=== PATIENT | male | born 2000 | race Caucasian/White ===

== ENCOUNTER 2024-01-16 13:53 | Emergency (ER) | payer OTHER, SELFPAY ==
[2024-01-16] VITALS (9 sets, daily range): BP systolic 117–138; BP diastolic 70–88; PULSE 60–87; RESP 12–20; TEMP 36.7; O2SAT 96–97; BMI 30.1
--- OUTSIDE RECORDS SUMMARY | 2024-01-16 13:57 | XMS_ITS | Continuity of Care Document ---
Author Name Unknown Organization [facility] Address [address] [address] [place] [address] Phone Care Team Providers Care Radio Time Sales Supervisor Name Role Phone Unavailable Unavailable Unavailable Allergies, Adverse Reactions, Alerts Substance Reaction Status Criticality No Known Allergies Active No Inform ation Medications Medication Instructions Dosage Effective Dates (start - stop) Status Comments Humalog 100 unit/mL subcutaneous solution inject by subcutaneous route per prescriber's instructions. Insulin dosing requires individualization. 0.00 - Active multivitamin tablet take 1 tablet by ora l route every day 1 tablet - Active Procedures Procedure Date Offic/outpt E&m [facility] Routine Serum Collection Gg; Iga, Igd, Igg, Igm, Ea Advance Directives Directive Yes / No Effective Date File Name No Information Encounters Encounter Description Practice Location Reason(s) For Visit Diagnoses Date Provider Providers Copied on Encounter [facility], [address] [address], [place], [id number], [place] tel:[phone] [facility] No Information 6 No Information Kai Hill DO. tel:[phone] Offic/outpt E&m [facility], [address] [address], [place], [id number], [place] tel:[phone] Pediatric [facility] GI Symptoms or Concerns (chief complaint) Type 1 diabetes mellitus without complicationAbno rmal laboratory test 5201 6 No Information Referring Provider: Referral Self, USE FOR SELF REFERRALS. Family History Family Member Type Diagnosis Age At Onset Sister Problem (finding) Alive and well Mother Problem (finding) Alive and well Father Problem (finding) Alive and well Brother Problem (finding) Alive and well Payers Payer name Insurance type Covered alliance party ID Authoriza tihebert(s) [employer] CI [id number] Social History Type Description Quantity Date Captured Comments Alcohol Use Details Unknown Caffeine Use Details Unknown Tobacco Use Status No Information Smoking Status No Information Sex Male Chief Complaint And Reason For Visit No Information Reason For Referral Reason For Referral No Information History Of Present Illness Encounter Date Complaint History Of Prese nt Illness GI Symptoms or Concerns Vazquez Funez is a 15-year-old boy seen in pediatric gastroenterology clinic accompanied by his mother and father in consultation for a tissue transglutaminase, which was found to be 6 with a reference range of 0 to 3. 0 to 3 is considered negative, 4 to 10 weakly positive, and 11 or greater positive. Vazquez has type 1 diabetes and because of feelings of fatigue, he had a tissue transglutaminase done with the above result noted. There was no total immunoglobulin A done at that time. He has diarrhea approximately once per month with one to two loose stools. He has never had a problem with constipation, but tends to have [place] 2 or 3 stools. When he does pass a very large stool, which is rare, he does experience some pain, but does not regard this as a problem. He has had no blood, mucus, or melena in his stool. He has no history of vomiting.FAMILY HISTORYThe family history is negative for celiac disease and type 1 diabetes.REVIEW OF SYSTEMSVazquez has no problems with Functional Status Date Functional Assessmen t No Information Instructions Date Instruction Additional Infor sree Today, we will obtai n a full celiac screen within a total immunoglobulin A, the tissue transglutaminase IgA deamidated gliadins IgA and IgG. We will then determine if we want to proceed to upper GI endoscopy with biopsies for the definitive assessment of celiac disease. Vazquez and his parents agree with this plan. Related to Type 1 diabetes mellitus without complication Assessments Type Assessment Date No Information Patient Care Teams Name Effective Dates (start - stop) Status Members No Information
--- OUTSIDE RECORDS SUMMARY | 2024-01-16 13:57 | XMS_ITS | Clinical Summary ---
Author Name Unknown Organization [facility] Address [place], [place] [address] Care Team Providers Care Banquet Attendant Name Role Phone Pcp, No Primary Care Provider Unavailabl e Allergies No known active allergies Medications Medication Sig Dispensed Refills Start Date End Date Status ibuprofen (ADVIL; MOTRIN) 200 mg cap Take 200 mg by mouth every 6 hours. Active ondansetron (ZOFRAN ODT) 4 mg disintegrating tabletIndications:Nause a and vomiting, unspecified vomiting type Place 1 Tablet (4 mg) on the tongue every 6 hours if needed for Nausea/Vomiting . 10 Tablet 07/11/2022 Active Active Problems Problem Noted Date Diagnosed Date Type 1 diabetes 07/11/2022 Social History Tobacco Use Types Packs/Day Years Used Date Smoking Tobacco: Never Smokeless Tobacco: Never Alcohol Use Standard Drinks/Week Comments Yes 0 (1 standard drink = 0.6 oz pur e alcohol) Sex and Gender Information Value Date Recorded Sex Assigned at Not on file Gender Identity Not on file Sexual Orientation Not on file Obstetrics History Last Filed Vital Signs Vital Sign Reading Time Taken Comments Blood Pressure 137/71 07/11/2022 9:00 AM CDT Pulse 114 07/11/2022 9:00 AM CDT Temperature 37.5 ??C (99.5 ??F) 07/11/2022 8:23 AM CD T Respiratory Rate 18 07/11/2022 8:23 AM CDT Oxygen Saturation 96% 07/11/2022 9:00 AM CDT Inhaled Oxygen Concentration - - Weight 90.7 kg (200 lb) 07/11/2022 8:23 AM CDT Height 180.3 cm (5' 11) 07/11/2022 8:23 AM CDT Body Mass Index 27.89 07/11/2022 8:23 AM CDT Plan of Treatment Not on file Care Teams Banquet Attendant Relationship Specialty Start Date End Date Pcp, No . PCP - General 07/11/22
[2024-01-16 14:08] LABS: Glucose, Point-of-Care* 440 mg/dl (60-115)
[2024-01-16] MEDS: 0.9 % SODIUM CHLORIDE 1000 ml 1,000 ML IV (14:28)
--- NOTE | 2024-01-16 14:31 | ED.GENADULT ---
HPI - General Adult General Chief complaint: Diabetic Related Problem Stated complaint: Blood sugar over 400 for 7 hrs Time Seen by Provider: 01/16/24 13:55 Source: patient Mode of arrival: ambulatory Limitations: no limitations History of Present Illness HPI narrative: 23-year-old male coming in today complaining of elevated blood sugars. Patient is has a history of type 1 diabetes and has an insulin pump in place. He last changed his pump 2 days ago. He states that for the last 7 hours his blood sugars have been over 400 he can not get them to come down. He feels what he describes as sticky - like he is slower to function. He also states that he has vomited a couple of times today. Patient does admit to drinking alcohol daily. Did have alcohol last night. No fevers, no abdominal pain. Related Data Home Medications Medication Instructions Recorded Confirmed albuterol sulfate 90 mcg/actuation 1 - 2 puff inhalation Q4-6H PRN 08/31/22 01/16/24 aerosol inhaler glucagon 3 mg/actuation nasal spray intranasal PRN 08/31/22 08/31/22 spray (Baqsimi) insulin aspart U-100 100 unit/mL See Rx Instructions continuous IV 08/31/22 01/16/24 subcutaneous solution (Novolog infusion DAILY U-100 Insulin aspart) Allergies Allergy/AdvReac Type Severity Reaction Status Date / Time No Known Drug Allergies Allergy Verified 01/16/24 14:04 Review of Systems Status of ROS: Reports: 10 or more systems reviewed and unremarkable except as noted in History and below PFSH PFS Social History Smoking Status: Never smoker Do you use any of these nicotine containing products: None Second hand tobacco smoke exposure: No How often do you have a drink containing alcohol: 4 or more times a week How many standard drinks containing alcohol do you have on a typical day: 1 or 2 AUDIT-C Alcohol total score: 4 Non-prescribed substance use: denies use Exam Narrative: Exam Narrative: Well-nourished well-developed patient in no acute distress. Alert and oriented. Answers questions appropriately. Mood and affect are appropriate. Thoughts are goal oriented and rational. No tangential or magical thinking noted. Patient speaks in full sentences without needing to catch his breath. HEENT: Normocephalic atraumatic. Pupils are equally round reactive to light. Extraocular muscles are intact. Conjunctivae are moist without any icterus noted. Moist mucous membranes. Posterior pharynx is normal. Neck is soft without any lymphadenopathy or thyromegaly. No masses are appreciated. Cardiovascular: Heart is regular rate and rhythm S1 and S2 are present without any murmurs. Lungs: Clear to auscultation bilaterally no wheezes rhonchi or rales are appreciated. Patient takes deep breaths without any discomfort. Abdomen: Soft and nontender nondistended with normal bowel sounds. No guarding or rebound. Extremities: Bilateral lower extremities are without edema. Skin: Well perfused without any obvious rashes. Const: Vital Signs, click to edit/add: Vital Signs - 24 hr 01/16/24 13:58 01/16/24 14:34 Temperature 98.0 F Pulse Rate [Pulse Oximeter] 60 Respiratory Rate 20 Blood Pressure [Ri ght Upper Arm] 138/77 Pulse Oximetry 96 97 Oxygen Delivery Me thod Room Air Course Course ED Course: Blood glucose 440. IV was established and patient is given a L of normal saline and 10 units of regular insulin. We unfortunately do not have the equipment necessary to change out his pump. Or with CBCs unremarkable. Venous blood gas was normal. Sodium was low at 132, potassium high 5.4. Chloride 95. EKG, read by me, shows normal sinus rhythm with sinus arrhythmia, pulse 65. Normal renal function. Lactate is normal at 1.4. AST slightly elevated at 43. Normal ALT. Urine positive for 3+ glucose, 4+ ketones. Repeat glucose was 265. Discussed results with patient and his mother. Because patient will be driving home by himself for an hour they want to be sure that his glucose is well within normal limits and his electrolytes are back to normal. Therefore, another 5 units of insulin was given IV. We waited approximately an hour and recheck lab Work: BMP was back to normal within normal sodium and potassium. Glucose was down to 191. Patient felt comfortable being discharged at this time to go home and changed his pump. Vital Signs Vital signs: Initial Vital Signs Temperature 98.0 F 01/16/24 13:58 Temperature Source Temporal Artery Scan 01/16/24 13:58 Pulse Rate 60 01/16/24 13:58 Respiratory Rate 20 01/16/24 13:58 Blood Pressure 138/77 01/16/24 13:58 Blood Pressure Mean 97 01/16/24 13:58 Blood Pressure Position Sitting 01/16/24 13:58 Pulse Oximetry 96 01/16/24 13:58 Oxygen Delivery Method Room Air 01/16/24 13:58 Vital Signs Temperature 98.0 F 01/16/24 13:58 Pulse Rate 60 01/16/24 13:58 Respiratory Rate 20 01/16/24 13:58 Blood Pressure 138/77 01/16/24 13:58 Pulse Oximetry 96 01/16/24 13:58 Oxygen Delivery Method Room Air 01/16/24 13:58 Temperature 98.0 F 01/16/24 13:58 Pulse Rate 60 01/16/24 13:58 Respiratory Rate 20 01/16/24 13:58 Blood Pressure 138/77 01/16/24 13:58 Pulse Oximetry 97 01/16/24 14:34 Oxygen Delivery Method Room Air 01/16/24 13:58 Medications Administered Medications: Discontinued Medications Generic Name Dose Route Start Last Admin Trade Name Freq PRN Reason Stop Dose Admin Sodium Chloride 1,000 mls @ 1,000 mls/hr 01/16/24 14:15 01/16/24 15:25 0.9 % Sodium Chloride 1000 Ml IV 01/16/24 15:14 Infused .Q1H SOHAIL Infusion Insulin Human Regular 10 unit 01/16/24 14:11 01/16/24 14:27 Insulin Regular 100 Unit/Ml Inj IVP 01/16/24 14:12 10 unit ONCE ONE Administration Insulin Human Regular 5 unit 01/16/24 15:27 01/16/24 16:08 Insulin Regular 100 Unit/Ml Inj IVP 01/16/24 15:28 5 unit ONCE ONE Administration Medical Decision Making [facility] Narrative Medical decision making narrative: 23-year-old male with hyperglycemia likely secondary to pump malfunction. Treatment per above. Lab Data Lab results reviewed: Yes I reviewed the patient's lab results Labs: Lab Results 01/16/24 01/16/24 01/16/24 Range/Units 14:04 14:29 14:55 WBC 7.96 (4.50-11.00) K/uL RBC 5.51 (4.30-5.90) m/uL Hgb 16.5 (13.5-17.5) gm/dL Hct 45.9 (37.0-53.0) % MCV 83 (80-100) fL MCH 30 (26-34) pg MCHC 36 (32-36) gm/dL RDW Coeff of Brigid 11.0 L (11.5-15.5) % Plt Count 268 (140-440) K/uL Neut % (Auto) 70.3 (42.0-72.0) % Lymph % (Auto) 12.2 L (20-44) % [place] % (Auto) 7.2 (0.0-11.0) % Eos % (Auto) 8.8 H (0.0-7.0) % Baso % (Auto) 0.6 (0.0-3.0) % Neut # (Auto) 5.60 (1.7-7.0) K/uL Lymph # (Auto) 1.00 (0.90-2.90) K/uL [place] # (Auto) 0.60 (0.00-0.90) K/UL Eos # (Auto) 0.70 H (0.00-0.50) K/uL Baso # (Auto) 0.05 (0.00-0.30) K/uL Abs Immat Gran (auto) 0.07 (0.00-0.30) K/uL Imm/Tot Granulo (auto) 0.9 % VBG pH 7.387 (7.32-7.43) VBG pCO2 45 (40-50) mmHG VBG pO2 42.6 (25-47) mmHG VBG HCO3 27 (21-28) mmol/L Sodium 132 L (135-149) mmol/L Potassium 5.4 H (3.6-5.1) mmol/L Chloride 95 L (96-114) mmol/L Carbon Dioxide 26 (20-32) mmol/L Anion Gap 11 (7-15) mEq/L BUN 23 (5-24) mg/dL Creatinine 0.9 (0.5-1.5) mg/dL Estimated Creat Clear 134.06 Estimated GFR 125 ml/min Glucose 448 H* (60-115) mg/dL Lactate 1.4 (0.5-1.9) mmol/L Calcium 10.0 (8.4-10.6) mg/dL Magnesium 1.9 (1.5-2.6) mg/dL Total Bilirubin 1.2 (0.1-1.5) mg/dL Direct Bilirubin 0.1 (0.0-0.5) mg/dL AST 43 H (12-35) U/L ALT 37 (4-50) U/L Alkaline Phosphatase 129 (40-150) U/L Total Protein 7.9 (6.0-8.3) g/dL Albumin 5.0 (3.3-5.0) g/dL Urine Color Yellow (Yellow) Urine Appearance Clear (Clear) Urine pH 6.0 (5.0-8.5) Ur Specific [place] <= 1.005 (1.000-1.030) Urine Protein Negative (Negative) Urine Glucose (UA) 3+ A (Negative) Urine Ketones 4+ A (Negative) Urine Blood Trace-intact A (Negative) Urine Nitrite Negative (Negative) Urine Bilirubin Negative (Negative) Urine Urobilinogen 0.2 (0.2-1.0) Ur Leukocyte Esterase Negative (Negative) Urine RBC 0-2 (0-2) Urine WBC 0-2 (0-5) Ur Squamous Epith Cells Few (None-Few) Urine Bacteria None (None) Ethyl Alcohol < 0.01 L (0.01-0.03) % POC Glucose 440 H* (60-115) mg/dl 01/16/24 01/16/24 Range/Units 15:16 16:56 WBC (4.50-11.00) K/uL RBC (4.30-5.90) m/uL Hgb (13.5-17.5) gm/dL Hct (37.0-53.0) % MCV (80-100) fL MCH (26-34) pg MCHC (32-36) gm/dL RDW Coeff of Brigid (11.5-15.5) % Plt Count (140-440) K/uL Neut % (Auto) (42.0-72.0) % Lymph % (Auto) (20-44) % [place] % (Auto) (0.0-11.0) % Eos % (Auto) (0.0-7.0) % Baso % (Auto) (0.0-3.0) % Neut # (Auto) (1.7-7.0) K/uL Lymph # (Auto) (0.90-2.90) K/uL [place] # (Auto) (0.00-0.90) K/UL Eos # (Auto) (0.00-0.50) K/uL Baso # (Auto) (0.00-0.30) K/uL Abs Immat Gran (auto) (0.00-0.30) K/uL Imm/Tot Granulo (auto) % VBG pH (7.32-7.43) VBG pCO2 (40-50) mmHG VBG pO2 (25-47) mmHG VBG HCO3 (21-28) mmol/L Sodium 135 (135-149) mmol/L Potassium 4.2 (3.6-5.1) mmol/L Chloride 100 (96-114) mmol/L Carbon Dioxide 31 (20-32) mmol/L Anion Gap 4 L (7-15) mEq/L BUN 21 (5-24) mg/dL Creatinine 0.8 (0.5-1.5) mg/dL Estimated Creat Clear 150.82 Estimated GFR 129 ml/min Glucose 191 H (60-115) mg/dL Lactate (0.5-1.9) mmol/L Calcium 9.6 (8.4-10.6) mg/dL Magnesium (1.5-2.6) mg/dL Total Bilirubin (0.1-1.5) mg/dL Direct Bilirubin (0.0-0.5) mg/dL AST (12-35) U/L ALT (4-50) U/L Alkaline Phosphatase (40-150) U/L Total Protein (6.0-8.3) g/dL Albumin (3.3-5.0) g/dL Urine Color (Yellow) Urine Appearance (Clear) Urine pH (5.0-8.5) Ur Specific [place] (1.000-1.030) Urine Protein (Negative) Urine Glucose (UA) (Negative) Urine Ketones (Negative) Urine Blood (Negative) Urine Nitrite (Negative) Urine Bilirubin (Negative) Urine Urobilinogen (0.2-1.0) Ur Leukocyte Esterase (Negative) Urine RBC (0-2) Urine WBC (0-5) Ur Squamous Epith Cells (None-Few) Urine Bacteria (None) Ethyl Alcohol (0.01-0.03) % POC Glucose 265 H (60-115) mg/dl ECG Data Attestation: I personally reviewed and interpreted this ECG as follows: Discharge Plan Discharge Clinical Impression: Acute hyperglycemia Patient Disposition: Home, Self-Care Condition: Improved Additional Instructions: Recommend you go home right away and change our pump. Monitor sugars closely for the remainder of the day. Prescriptions: No Action insulin aspart U-100 [Novolog U-100 Insulin aspart] 100 unit/mL solution See Rx Instructions continuous IV infusion DAILY Patient Comments: ADMINISTER 100 UNITS UNDER THE SKIN EVERY DAY VIA. INSULIN PUMP FOR CARBS AND CORRECTION. Rx Instructions: via continuous IV infusion daily; Baqsimi 3 mg/actuation spray,non-aerosol intranasal PRN albuterol sulfate 90 mcg/actuation HFA aerosol inhaler 1 - 2 puff inhalation Q4-6H PRN Follow Up/Referrals: José Albert MD [Primary Care Provider] - Stand Alone Forms: [id number] Info Instructions
[2024-01-16 14:32] LABS: HCO3 VBG 27 mmol/L (21-28); PCO2 VBG 45 mmHG (40-50); PO2 VBG 42.6 mmHG (25-47); pH VBG 7.387 (7.32-7.43)
[2024-01-16 14:35] LABS: Lactate* 1.4 mmol/L (0.5-1.9)
--- OUTSIDE RECORDS SUMMARY | 2024-01-16 14:36 | XMS_ITS | Continuity of Care Document ---
Author Name Unknown Organization [facility] Address [address] [address] [place] [address] Phone Care Team Providers Care Acute Care Nurse Name Role Phone Unavailable Unavailable Unavailable Allergies, [...] - Active Procedures Procedure Date Offic/outpt E&m [facility] Routine Serum Collection Gg; Iga, Igd, Igg, Igm, Ea Advance Directives Directive Yes / No Effective Date File Name No Information Encounters Encounter Description Practice Location Reason(s) For Visit Diagnoses Date Provider Providers Copied on Encounter [facility], [address] [address], [place], [id number], [place] tel:[phone] Pediatric Clinic No Information 6 No Information Kai Hill DO. tel:[phone] Offic/outpt E&m [facility], [address] [address], [place], [id number], [place] tel:[phone] Pediatric Clinic GI Symptoms or Concerns (chief [...] well Payers Payer name Insurance type Covered constitution party ID Authoriza tihebert(s) [employer] CI [id number] Social History Type Description Quantity Date Captured [...] problem with constipation, but tends to have [place] 2 or 3 stools. When he does [...]
--- OUTSIDE RECORDS SUMMARY | 2024-01-16 14:36 | XMS_ITS | Continuity of Care Document ---
Author Name Unknown Organization [facility] Address [address] [address] [place] [address] Phone Care Team Providers Care Finishing Wire Sawyer Name Role Phone Unavailable Unavailable Unavailable Allergies, [...] - Active Procedures Procedure Date Offic/outpt E&m [facility] Routine Serum Collection Gg; Iga, Igd, Igg, Igm, Ea Advance Directives Directive Yes / No Effective Date File Name No Information Encounters Encounter Description Practice Location Reason(s) For Visit Diagnoses Date Provider Providers Copied on Encounter [facility], [address] [address], [place], [id number], [place] tel:[phone] Pediatric Clinic No Information 6 No Information Kai Hill DO. tel:[phone] Offic/outpt E&m [facility], [address] [address], [place], [id number], [place] tel:[phone] Pediatric Clinic GI Symptoms or Concerns (chief [...] well Payers Payer name Insurance type Covered green party ID Authoriza tihebert(s) [employer] CI [id number] Social History Type Description Quantity Date Captured [...] problem with constipation, but tends to have [place] 2 or 3 stools. When he does [...]
--- OUTSIDE RECORDS SUMMARY | 2024-01-16 14:36 | XMS_ITS | Clinical Summary ---
Author Name Unknown Organization [facility] Address [place], [place] [address] Care Team Providers Care Executive Legal Secretary Name Role Phone Pcp, No Primary Care [...] of Treatment Not on file Care Teams Executive Legal Secretary Relationship Specialty Start Date End Date Pcp, No . PCP - General 07/11/22
[2024-01-16 14:56] LABS: Chloride* 95 mmol/L (96-114); Sodium* 132 mmol/L (135-149)
[2024-01-16 14:57] LABS: Potassium* 5.4 mmol/L (3.6-5.1)
[2024-01-16 14:58] LABS: Creatinine* 0.9 mg/dL (0.5-1.5); Est. Creatinine Clearance* 134.06; Estimated Glomerular Filt Rate 125 ml/min
[2024-01-16 14:59] LABS: Alanine Aminotransferase* 37 U/L (4-50); Alkaline Phosphatase* 129 U/L (40-150); Anion Gap 11 mEq/L (7-15); Aspartate Amino Transferase* 43 U/L (12-35); Bilirubin Direct* 0.1 mg/dL (0.0-0.5); Bilirubin Total* 1.2 mg/dL (0.1-1.5); Blood Urea Nitrogen* 23 mg/dL (5-24); Carbon Dioxide* 26 mmol/L (20-32); Total Protein* 7.9 g/dL (6.0-8.3)
[2024-01-16 15:00] LABS: Magnesium* 1.9 mg/dL (1.5-2.6)
[2024-01-16 15:02] LABS: Basophils Absolute Auto 0.05 K/uL (0.00-0.30); Basophils Percent Auto 0.6 % (0.0-3.0); Eosinophils Percent Auto 8.8 % (0.0-7.0); Hematocrit 45.9 % (37.0-53.0); Hemoglobin* 16.5 gm/dL (13.5-17.5); Immature Granulocytes Abs Auto 0.07 K/uL (0.00-0.30); Immature Granulocytes Pct Auto 0.9 %; Lymphocytes Percent Auto 12.2 % (20-44); Mean Corpuscular HGB Conc 36 gm/dL (32-36); Mean Corpuscular Hemoglobin 30 pg (26-34); Mean Corpuscular Volume 83 fL (80-100); Monocytes Percent Auto 7.2 % (0.0-11.0); Neutrophils Percent Auto 70.3 % (42.0-72.0); Platelet Count* 268 K/uL (140-440); Red Blood Count 5.51 m/uL (4.30-5.90); White Blood Count* 7.96 K/uL (4.50-11.00)
[2024-01-16 15:09] LABS: Ethanol* < 0.01 % (0.01-0.03); Glucose* 448 mg/dL (60-115)
[2024-01-16 15:17] LABS: Slide Review Reflex No
[2024-01-16 15:18] LABS: Glucose, Point-of-Care* 265 mg/dl (60-115)
[2024-01-16 15:20] LABS: Appearance Urine Clear (Clear); Bilirubin Urine Negative (Negative); Blood Urine Trace-intact (Negative); Color Urine Yellow (Yellow); Glucose Urine 3+ (Negative); Ketones Urine 4+ (Negative); Leukocyte Esterase Urine Negative (Negative); Nitrite Urine Negative (Negative); Protein Urine Negative (Negative); Specific Gravity Urine <= 1.005 (1.000-1.030); Urobilinogen Urine 0.2 (0.2-1.0)
[2024-01-16 15:29] LABS: RBC Urine 0-2 (0-2); Squamous Epithelial Cell Urine Few (None-Few); WBC Urine 0-2 (0-5)
[2024-01-16 17:15] LABS: Chloride* 100 mmol/L (96-114); Potassium* 4.2 mmol/L (3.6-5.1); Sodium* 135 mmol/L (135-149)
[2024-01-16 17:18] LABS: Anion Gap 4 mEq/L (7-15); Carbon Dioxide* 31 mmol/L (20-32); Creatinine* 0.8 mg/dL (0.5-1.5); Est. Creatinine Clearance* 150.82; Estimated Glomerular Filt Rate 129 ml/min
[2024-01-16 17:19] LABS: Blood Urea Nitrogen* 21 mg/dL (5-24); Calcium* 9.6 mg/dL (8.4-10.6); Glucose* 191 mg/dL (60-115)
== END 2024-01-16 17:37 | disposition home or self-care (01) ==
PROVIDERS: Emergency Provider Family Medicine; PCP Family Medicine
DX: E10.65 Type 1 diabetes mellitus with hyperglycemia (principal)
CPT/HCPCS: 36415; 80048; 80076; 81001; 82077; 82803; 82947; 82962; 83605; 83735; 85025; 93005; 94761; 99284; J7030